=== PATIENT | female | born 2000 | race Caucasian/White ===

== ENCOUNTER 2025-03-06 12:37 | Emergency (ER) | payer OTHER, SELFPAY ==
--- NOTE | ~2025-03-06 | CT_ITS ---
CLINICAL HISTORY: sigmoid divertic? CT abdomen and pelvis with contrast Comparison: None Findings: The lung bases are clear. Unremarkable gallbladder and solid organs. No urolithiasis. No bowel obstruction, pneumoperitoneum, or pneumatosis. Trace inflammatory changes surrounding sigmoid diverticulum on series 3, image 73. Scattered additional sigmoid diverticula. Normal stomach, small, and appendix. IUD noted. Ovaries and uterus otherwise normal. Urinary bladder unremarkable. IMPRESSION: Trace inflammatory changes surrounding a sigmoid diverticulum may indicate very mild sigmoid diverticulitis. This document has been electronically signed by: Syed Hernández MD on 03/07/2025 00:46:45
[2025-03-06 13:22] VITALS: BP 157/89; PULSE 86; RESP 18; TEMP 36.6; O2SAT 96; BMI 33.5
--- NOTE | 2025-03-06 13:25 | ED.GENADULT ---
HPI - General Adult General Chief complaint: Abdominal Pain Stated complaint: Abd pain, sent from urgent care Time Seen by Provider: 03/06/25 21:53 Source: patient Limitations: no limitations History of Present Illness ED Provider: Krys Huang PA-C HPI narrative: 24-year-old female presents with right-sided abdominal pain for weeks. Pain primarily over mid to right lower abdomen, described as a burning sensation every time she eats. Patient states when she eats she develops nausea and immediate onset diarrhea. Patient has been having some degree of symptoms for months, however over the past few weeks it is increased in severity. Denies fever. Denies recent hospitalization, travel or use of antibiotics. Patient had a recent ultrasound of the right upper quadrant as an outpatient 4 days ago, there was no biliary pathology. No one is sick with similar symptoms. Related Data Previous Rx's ?Medication ?Instructions ?Recorded levofloxacin 750 mg tablet 750 mg PO DAILY #7 tabs 03/07/25 metronidazole 500 mg tablet 500 mg PO Q8H 7 days #21 tabs 03/07/25 Allergies Allergy/AdvReac Type Severity Reaction Status Date / Time No Known Allergies Allergy Verified 03/06/25 13:24 Review of Systems Review of Systems: Yes all other systems are reviewed and are negative Constitutional: Constitutional: Denies fatigue and Denies fever(s) Cardiovascular: Cardiovascular: Denies chest pain and Denies dyspnea Respiratory: Respiratory: Denies dyspnea Gastrointestinal: Gastrointestinal: Reports abdominal pain, Reports diarrhea, Reports nausea and Denies vomiting Endocrine: Endocrine: Denies fatigue PMFSH Past Medical History Attestation statement: The following information was validated with the patient. Physical Exam ED Vital Signs: Vital Signs - 24 hr 03/06/25 13:22 03/06/25 21:18 03/07/25 00:39 Temperature 98 F 98.4 F 97 F Pulse Rate 86 54 47 L Respiratory Rate 18 18 18 Blood Pressure 157/89 H 151/81 H 118/50 L Pulse Oximetry 96 100 97 Oxygen Delivery Method Room Air Room Air Room Air 03/07/25 01:40 Temperature 97 F Pulse Rate 47 L Respiratory Rate 18 Blood Pressure 118/50 L Pulse Oximetry 97 Oxygen Delivery Method Room Air BMI result Body Mass Index 33.5 Const Other: Alert well-appearing Orientation/consciousness: patient oriented x3 Resp Effort & Inspection: normal respiratory effort Cardio Other: Normal peripheral perfusion GI Other: In his soft, mild tenderness right mid abdomen to right lower quadrant to suprapubic region without guarding Skin Other: Warm dry no rash Neuro General: patient oriented x3, gait normal, no focal motor deficits and CN's II-XI intact bilaterally Psych Other: Cooperative, anxious Course Course Course Narrative: RME: 24-year-old female presents to ED for right upper right lower quadrant abdominal pain with diarrhea past couple of days. Patient was sent by urgent Care for CAT scan imaging. Positive for right upper right lower quadrant tenderness on palpation. Labs ordered Medications Administered Discontinued Medications Generic Name Dose Route Start Last Admin Trade Name Freq PRN Reason Stop Dose Admin Famotidine 20 mg 03/06/25 22:45 03/06/25 23:19 Famotidine/Pf 20 Mg/2 Ml Vial IVPUSH 03/06/25 22:46 20 mg ONCE ONE Administration Sodium Chloride 1,000 mls @ 999 mls/hr 03/06/25 22:45 03/07/25 00:42 Ns IV 03/06/25 23:45 Infused .Q1H1M ABBEY Infusion Iohexol 85 ml 03/07/25 00:25 03/07/25 00:26 Iohexol 350 Mg/Ml 100 Ml Infus..Btl IV 03/07/25 00:26 85 ml ONCE ONE Administration Ketorolac Tromethamine 15 mg 03/06/25 22:45 03/06/25 23:18 Ketorolac Tromethamine 15 Mg/Ml Vial IVPUSH 03/06/25 22:46 15 mg ONCE ONE Administration Levofloxacin 750 mg 03/07/25 01:00 03/07/25 01:06 Levofloxacin 750 Mg Tablet PO 03/07/25 01:01 750 mg ONCE ONE Administration Metronidazole 500 mg 03/07/25 01:00 03/07/25 01:06 Metronidazole 500 Mg Tablet PO 03/07/25 01:01 500 mg ONCE ONE Administration Medical Decision Making Medical Decision Making [facility] Narrative: 24-year-old female presents with right-sided abdominal pain for weeks. Pain primarily over mid to right lower abdomen, described as a burning sensation every time she eats. Patient states when she eats she develops nausea and immediate onset diarrhea. Patient has been having some degree of symptoms for months, however over the past few weeks it is increased in severity. Denies fever. Denies recent hospitalization, travel or use of antibiotics. Patient had a recent ultrasound of the right upper quadrant as an outpatient 4 days ago, there was no biliary pathology. No one is sick with similar symptoms. No known chronic issues History: Per patient I have considered the following differential diagnoses: Diverticulitis, colitis, C diff, traveler's diarrhea, viral gastroenteritis, Plan: Screening labs obtained from triage, they are completely normal. She has somewhat of a benign abdominal exam, she was sent here from urgent Care, they told the patient she definitely requires a CT scan. We will order. Giving Toradol famotidine and IV fluid. She has no risk factors for C diff or traveler's diarrhea, doubtful to be viral gastroenteritis given she ultimately has been having symptoms for months. Could be sigmoid diverticulitis, but again she has had symptoms for a prolonged period of time. Labs: No leukocytosis, not anemic, no electrolyte abnormality, not , urine not infected CT abd pelvis: Findings: The lung bases are clear. Unremarkable gallbladder and solid organs. No urolithiasis. No bowel obstruction, pneumoperitoneum, or pneumatosis. Trace inflammatory changes surrounding sigmoid diverticulum on series 3, image 73. Scattered additional sigmoid diverticula. Normal stomach, small, and appendix. IUD noted. Ovaries and uterus otherwise normal. Urinary bladder unremarkable. IMPRESSION: Trace inflammatory changes surrounding a sigmoid diverticulum may indicate very mild sigmoid diverticulitis. Lab Data 03/06/25 14:15 03/06/25 14:15 Labs: Lab Results 03/06/25 03/06/25 Range/Units 14:15 14:29 WBC 8.1 (4.8-10.8) X10*3/uL RBC 4.98 (4.20-5.50) X10*6/uL Hgb 14.2 (12.0-16.0) g/dl Hct 43.7 (37.0-47.0) % MCV 87.8 (80.0-98.0) fL MCH 28.5 (27.0-33.0) pg MCHC 32.5 (31.0-35.0) g/dl RDW 12.6 (11.0-16.0) % Plt Count 240 (160-400) X10*3/uL MPV 10.7 (9.4-12.3) fL Immature Gran % (Auto) 0.2 (0.0-0.4) % Neut % (Auto) 52.3 (45-73) % Lymph % (Auto) 27.8 (20-40) % [place] % (Auto) 5.4 (2-11) % Eos % (Auto) 13.4 H (0-4) % Baso % (Auto) 0.9 (0-2) % Lymph # (Auto) 2.3 (1.2-4.9) X10*3/uL [place] # (Auto) 0.4 (0.1-1.2) X10*3/uL Eos # (Auto) 1.1 H (0.0-0.4) X10*3/uL Baso # (Auto) 0.1 (0.0-0.2) X10*3/uL Abs Immat Gran (auto) 0.02 (0.00-0.03) X10*3/uL Absolute Neuts (auto) 4.3 (2.0-8.3) x10*3/uL Absolute Nucleated RBC 0.000 (0.0-0.012) X10*3/uL Nucleated RBC % (auto) 0.0 (0.0-0.2) /100WBC Sodium 140 (135-145) mmol/L Potassium 3.9 (3.3-5.1) mmol/L Chloride 112 H (96-108) mmol/L Carbon Dioxide 24 (22-29) mmol/L Anion Gap 8 L (12-20) BUN 6 L (9-16) mg/dL Creatinine 0.76 (0.5-1.4) mg/dL Estim Creat Clear Calc 120.7 Estimated GFR > 60 Random Glucose 95 (60-115) mg/dL Calcium 8.5 (8.4-10.2) mg/dL Total Bilirubin 0.4 (0.0-1.0) mg/dL AST 22 (5-31) U/L ALT 19 (0-31) U/L Alkaline Phosphatase 68 (39-117) U/L Total Protein 7.0 (6.5-8.0) g/dL Albumin 4.3 (3.5-5.0) g/dL Lipase 21 (8-78) U/L Beta HCG, Quant < 2 mIU/mL Urine Color Dark Yellow Urine Appearance Clear Urine pH 5.5 (5.0-9.0) Ur Specific [place] >= 1.030 H (1.005-1.025) Urine Protein Trace (Neg-Trace) mg/dL Urine Glucose (UA) Negative (Negative) mg/dL Urine Ketones Trace (Negative) mg/dL Urine Blood Negative (Negative) Urine Nitrite Negative (Negative) Ur Leukocyte Esterase Small (1+) H (Negative) Urine RBC 0-2 (0-2) /HPF Urine WBC 6-10 H (0-5) /HPF Ur Squamous Epith Cells 6-10 (0-2) /HPF Urine Bacteria 1+ (None Seen) Hyaline Casts 0-2 (0-2) /LPF Urine Test NEGATIVE (NEGATIVE) Discharge Plan Discharge Clinical Impression: Diverticulitis Patient Disposition: Home, Self-Care Instructions: Diverticulitis (ED), Diverticulitis Diet (ED) Additional Instructions: You were found to have sigmoid diverticulitis, see home care instructions. Take both antibiotics as directed. It is ideal that you have gastroenterology follow up today, keep your appointment. I am including the read in your discharge instructions. Your GI specialist can call the hospital to request images later today at your appointment. Findings: The lung bases are clear. Unremarkable gallbladder and solid organs. No urolithiasis. No bowel obstruction, pneumoperitoneum, or pneumatosis. Trace inflammatory changes surrounding sigmoid diverticulum on series 3, image 73. Scattered additional sigmoid diverticula. Normal stomach, small, and appendix. IUD noted. Ovaries and uterus otherwise normal. Urinary bladder unremarkable. IMPRESSION: Trace inflammatory changes surrounding a sigmoid diverticulum may indicate very mild sigmoid diverticulitis. Prescriptions: New metronidazole 500 mg tablet 500 mg PO Q8H 7 Days Qty: 21 0RF levofloxacin 750 mg tablet 750 mg PO DAILY Qty: 7 0RF Stand Alone Forms: Work/School Release Interventions: ED Discharge Assessment Last Done: 03/07/25 01:40 Discharge Date/Time: 03/07/25 01:41 Print Language: Mongolian
[2025-03-06 14:27] LABS: MANUAL DIFF FLAG NO
[2025-03-06 14:28] LABS: Basophils Absolute Auto 0.1 X10*3/uL (0.0-0.2); Basophils Percent Auto 0.9 % (0-2); Eosinophils Absolute Auto 1.1 X10*3/uL (0.0-0.4); Eosinophils Percent Auto 13.4 % (0-4); Hematocrit 43.7 % (37.0-47.0); Hemoglobin 14.2 g/dl (12.0-16.0); Imm Gran Abs Auto 0.02 X10*3/uL (0.00-0.03); Imm Gran Pct Auto 0.2 % (0.0-0.4); Lymphocytes Absolute Auto 2.3 X10*3/uL (1.2-4.9); Lymphocytes Percent Auto 27.8 % (20-40); Mean Corpuscular HGB Conc 32.5 g/dl (31.0-35.0); Mean Corpuscular Hemoglobin 28.5 pg (27.0-33.0); Mean Corpuscular Volume 87.8 fL (80.0-98.0); Mean Platelet Volume 10.7 fL (9.4-12.3); Monocytes Absolute Auto 0.4 X10*3/uL (0.1-1.2); Monocytes Percent Auto 5.4 % (2-11); Neutrophils Absolute Auto 4.3 x10*3/uL (2.0-8.3); Neutrophils Percent Auto 52.3 % (45-73); Platelet Count 240 X10*3/uL (160-400); Red Blood Count 4.98 X10*6/uL (4.20-5.50); Red Cell Distribution Width 12.6 % (11.0-16.0); White Blood Count 8.1 X10*3/uL (4.8-10.8)
[2025-03-06 14:38] LABS: Appearance Urine Clear; Color Urine Dark Yellow; Glucose Urine UA Negative (Negative); Leukocyte Esterase Urine Small (1+) (Negative); Nitrite Urine Negative (Negative); PH 5.5 (5.0-9.0); Specific Gravity - Urine >= 1.030 (1.005-1.025); UMIC TRIGGER UACC YES; Urine Blood Negative (Negative); Urine Ketones Trace mg/dL (Negative); Urine Protein Trace mg/dL (Neg-Trace)
[2025-03-06 14:40] LABS: UPreg QC Valid YES; Urine Pregnancy NEGATIVE (NEGATIVE)
[2025-03-06 14:51] LABS: Alanine Aminotransferase 19 U/L (0-31); Albumin Level 4.3 g/dL (3.5-5.0); Alkaline Phosphatase 68 U/L (39-117); Anion Gap 8 (12-20); Aspartate Amino Transferase 22 U/L (5-31); Bilirubin Total 0.4 mg/dL (0.0-1.0); Blood Urea Nitrogen 6 mg/dL (9-16); Calcium 8.5 mg/dL (8.4-10.2); Carbon Dioxide 24 mmol/L (22-29); Chloride 112 mmol/L (96-108); Creatinine Clr Calc Pharmacy 120.7; Estimated Glomerular Filt Rate > 60; Glucose Random 95 mg/dL (60-115); Lipase 21 U/L (8-78); Potassium 3.9 mmol/L (3.3-5.1); Sodium 140 mmol/L (135-145)
[2025-03-06 14:51] LABS: Bacteria Urine 1+ (None Seen); Hyaline Casts Urine 0-2 /LPF (0-2); RBC Urine 0-2 /HPF (0-2); UACC Culture Trigger YES
[2025-03-06 15:00] LABS: HCG Quantitative < 2 mIU/mL
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
[2025-03-06 21:18] VITALS: BP 151/81; PULSE 54; RESP 18; TEMP 36.9; O2SAT 100
--- NOTE | 2025-03-06 22:57 | PC.NURSE ---
notified provider Amilcar Kulkarni, unable to get Iv line, Will need ultra sound Iv.
[2025-03-06] MEDS: Ketorolac Tromethamine 15 MG/ML VIAL IVPUSH (23:18)
[2025-03-06] MEDS: Famotidine/PF 20 MG/2 ML VIAL IVPUSH (23:19)
[2025-03-06] MEDS: 0.9 % Sodium Chloride 1,000 ML 999 ML IV (23:21)
--- NOTE | 2025-03-06 23:35 | PC.NURSE ---
Amilcar Kulkarni into assess IV fluid start by provider.
--- NOTE | 2025-03-07 00:24 | PC.NURSE ---
pt back from CT Scan
[2025-03-07] MEDS: iohexoL 350 MG/ML 100 ML INFUS..BTL 85 ML IV (00:26)
[2025-03-07 00:39] VITALS: BP 118/50; PULSE 47; RESP 18; TEMP 36.1; O2SAT 97
--- NOTE | 2025-03-07 00:52 | PC.NURSE ---
repeat blood pressure, still elevated, notified provider, provider into discuss plan of care.
[2025-03-07] MEDS: metroNIDAZOLE 500 MG TABLET PO (01:06)
[2025-03-07] MEDS: levoFLOXacin 750 MG TABLET PO (01:06)
--- NOTE | 2025-03-07 01:39 | PC.NURSE ---
Reviewed discharge instructions with pt, pt verbalized understanding, no sign of distress. pt discharge with family member.
[2025-03-07 01:40] VITALS: BP 118/50; PULSE 47; RESP 18; TEMP 36.1; O2SAT 97
== END 2025-03-07 01:41 | disposition home or self-care (01) ==
PROVIDERS: Physician Assistant; Emergency Provider Emergency Medicine; PCP Nurse Practitioner
DX: K57.32 Diverticulitis of large intestine without perforation or abscess without bleeding (principal); R10.2 Pelvic and perineal pain; R11.0 Nausea; R10.11 Right upper quadrant pain; Z79.899 Other long term (current) drug therapy
CPT/HCPCS: 36415; 74177; 80053; 81001; 81025; 83690; 84702; 85025; 87086; 96361; 96374; 96375; 99284; 99285; J1308; J1885; Q9967

== ENCOUNTER → 2025-03-07 | Outpatient (BNV) | payer OTHER, SELFPAY | PROVIDERS: Emergency Provider Emergency Medicine; PCP Nurse Practitioner; Visit Provider Radiology Diagnostic Radiology | DX: R10.31 Right lower quadrant pain (principal) | CPT/HCPCS: 74177 ==